=== PATIENT | male | born 1990 | race Caucasian/White ===

== ENCOUNTER 2017-07-14 11:30 | Emergency (ER) | payer SELFPAY ==
[2017-07-14 14:13] VITALS: BP 120/74
== END 2017-07-14 14:13 | disposition home or self-care (01) ==
LOC: ED 11:30
DX: M54.5 Low back pain (principal); F17.200 Nicotine dependence, unspecified, uncomplicated; Z71.6 Tobacco abuse counseling
CPT/HCPCS: 99406; J1100; J1885

== ENCOUNTER 2018-12-10 16:35 | Emergency (ER) | payer OTHER ==
[~2018-12-10] VITALS: Ht 172.7 cm; Wt 71.7 kg
[2018-12-10 16:51] VITALS: BP 121/72; Ht 172.7 cm; Wt 71.7 kg
== END 2018-12-10 18:26 | disposition home or self-care (01) ==
LOC: ED 16:35
DX: S00.12XA Contusion of left eyelid and periocular area, initial encounter (principal); S09.8XXA Other specified injuries of head, initial encounter; W18.30XA Fall on same level, unspecified, initial encounter; Y93.89 Activity, other specified; Y92.89 Other specified places as the place of occurrence of the external cause; Y99.8 Other external cause status